=== PATIENT | male | born 1980 ===

== ENCOUNTER 2019-04-26 17:35 | Inpatient (IN) | payer OTHER ==
--- NOTE | 2019-04-26 17:53 | Event Note ---
ED Screening Note ED Screening Note: pt states he has gallstones states that he appears yellow This initial assessment/diagnostic orders/clinical plan/treatment(s) is/are subject to change based on patients health status, clinical progression and re- assessment by fellow clinical providers in the ED. Further treatment and workup at subsequent clinical providers discretion. Patient/guardian urged not to elope from the ED as their condition may be serious if not clinically assessed and managed. Initial orders include: labs
[2019-04-26 18:12] LABS: Basophils # (Auto) 0.1 K/mm3 (0.0-0.1); Basophils % (Auto) 0.6 % (0.0-1.8); Eosinophils # (Auto) 0.1 K/mm3 (0.0-0.4); Eosinophils % (Auto) 1.5 % (0.0-4.3); Hematocrit 47.4 % (35.5-45.6); Hemoglobin 16.6 gm/dl (11.8-15.2); Lymphocytes # (Auto) 1.4 K/mm3 (1.2-5.4); Lymphocytes % (Auto) 17.3 % (13.4-35.0); Mean Corpuscular HGB Conc 35 % (32-34); Mean Corpuscular Volume 86 fl (84-94); Monocytes # (Auto) 0.6 K/mm3 (0.0-0.8); Monocytes % (Auto) 7.2 % (0.0-7.3); Platelet Count 283 K/mm3 (140-440); Red Blood Count 5.54 M/mm3 (3.65-5.03); Red Cell Distribution Width 14.6 % (13.2-15.2)
[2019-04-26 18:37] LABS: Alanine Aminotransferase 253 units/L (7-56); Albumin 4.3 g/dL (3.9-5); BUN/Creatinine Ratio 15; Blood Urea Nitrogen 15 mg/dL (9-20); Calcium 9.6 mg/dL (8.4-10.2); Hemolysis Index 20
--- NOTE | 2019-04-26 20:45 | Ultrasound Report ---
ULTRASOUND ABDOMEN, LIMITED (RIGHT UPPER QUADRANT) INDICATION: Hx of gallstones, elevated bilirubin. COMPARISON: None available. FINDINGS: Pancreas: Visualized portion shows no significant abnormality. Liver: Normal. Gallbladder: Multiple echogenic structures are present within the gallbladder with associated acousti c shadowing.. Bile ducts: Normal. Common Bile Duct measures 4.1 mm. Free fluid: None. Additional Findings: None. IMPRESSION: 1. Cholelithiasis Signer Name: Presley May MD Signed: 04/26/2019 8:41 PM Workstation Name: [id number]
[2019-04-26] MEDS ORDERED: MORPHINE IV ONE (21:09)
[2019-04-26] MEDS ORDERED: NACL 0.9% 1000 ML 1,000 ML IV ONE (21:09)
[2019-04-26] MEDS ORDERED: ZOFRAN IV ONE (21:09)
--- NOTE | 2019-04-26 21:50 | Emergency Department Report ---
ED Abdominal Pain HPI - General Chief Complaint: Abdominal Pain Stated Complaint: (R) SIDE/ABD PAIN Time Seen by Provider: 04/26/19 17:51 Source: patient Mode of arrival: Ambulatory Limitations: Language Barrier - History of Present Illness Initial Comments: Patient is a 38-year-old male who presents for right upper quadrant pain sent from PCP office for jaundice history of gallstones pain is 8/10 exacerbated by by mouth intake as well as nausea and vomiting this afternoon last by mouth intake was this morning there is no fever no chills at this time patient denies EtOH denies substance abuse MD Complaint: abdominal pain Onset/Timin -: week(s) Location: RUQ Radiation: epigastric Migration to: RUQ Severity: moderate Severity scale (0 -10): 6 Quality: aching, sharp Consistency: constant Improves With: nothing Worsens With: eating Associated Symptoms: nausea, vomiting - Related Data Allergies Allergy/AdvReac Type Severity Reaction Status Date / Time No Known Allergies Allergy Unverified 04/26/19 17:37 ED Review of Systems ROS: Stated complaint: (R) SIDE/ABD PAIN Other details as noted in HPI Constitutional: no symptoms reported Eyes: denies: eye pain, eye discharge, vision change ENT: denies: ear pain, throat pain Respiratory: denies: cough, shortness of breath, wheezing Cardiovascular: denies: chest pain, palpitations Endocrine: no symptoms reported Gastrointestinal: abdominal pain, nausea, vomiting. denies: diarrhea, constipation, hematemesis, melena, hematochezia Genitourinary: denies: urgency, dysuria Musculoskeletal: denies: back pain, joint swelling, arthralgia Skin: denies: rash, lesions Neurological: denies: headache, weakness, paresthesias Psychiatric: denies: anxiety, depression Hematological/Lymphatic: as per HPI ED Past Medical Hx - Past Medical History Additional medical history: UNSURE OF HX - Social History Smoking Status: Never Smoker Substance Use Type: None ED Physical Exam - General Limitations: Language Barrier General appearance: alert, in no apparent distress - Head Head exam: Present: atraumatic, normocephalic - Eye Eye exam: Present: normal appearance, PERRL, EOMI Pupils: Present: normal accommodation - ENT ENT exam: Present: mucous membranes moist - Neck Neck exam: Present: normal inspection, full ROM. Absent: tenderness, lymphadenopathy - Respiratory Respiratory exam: Present: normal lung sounds bilaterally. Absent: respiratory distress, wheezes, stridor, chest wall tenderness - Cardiovascular Cardiovascular Exam: Present: regular rate, normal rhythm, normal heart sounds. Absent: systolic murmur, diastolic murmur, rubs, gallop - GI/Abdominal GI/Abdominal exam: Present: soft, tenderness, guarding, rebound, normal bowel sounds, organomegaly. Absent: distended, rigid, mass, bruit, pulsatile mass, hernia - Expanded GI/Abdominal Exam Expanded GI/Abdominal exam: Present: Kearney's sign. Absent: psoas sign, obturator sign, heel tap sign, Rovsing's sign, tenderness at Mcburney's Point, ascites - Rectal Rectal exam: Present: deferred - Extremities Exam Extremities exam: Present: normal inspection, full ROM, normal capillary refill. Absent: tenderness, pedal edema, joint swelling, calf tenderness - Back Exam Back exam: Present: normal inspection, full ROM. Absent: tenderness, CVA tenderness (R), CVA tenderness (L), muscle spasm, paraspinal tenderness, rash noted - Neurological Exam Neurological exam: Present: alert, oriented X3, CN II-XII intact, normal gait, reflexes normal. Absent: motor sensory deficit - Psychiatric Psychiatric exam: Present: normal affect, normal mood - Skin Skin exam: Present: warm, dry, intact, normal color. Absent: rash ED Course Vital Signs 04/26/19 17:51 Temperature 98.5 F Pulse Rate 105 H Respiratory 16 Rate Blood Pressure 156/100 [Left] O2 Sat by Pulse 97 Oximetry ED Medical Decision Making - Lab Data Result diagrams: 04/26/19 17:59 04/26/19 17:59 Lab Results 04/26/19 04/26/19 Range/Units 17:59 17:59 WBC 8.1 (4.5-11.0) K/mm3 RBC 5.54 H (3.65-5.03) M/mm3 Hgb 16.6 H (11.8-15.2) gm/dl Hct 47.4 H (35.5-45.6) % MCV 86 (84-94) fl MCH 30 (28-32) pg MCHC 35 H (32-34) % RDW 14.6 (13.2-15.2) % Plt Count 283 (140-440) K/mm3 Lymph % (Auto) 17.3 (13.4-35.0) % [place] % (Auto) 7.2 (0.0-7.3) % Eos % (Auto) 1.5 (0.0-4.3) % Baso % (Auto) 0.6 (0.0-1.8) % Lymph # 1.4 (1.2-5.4) K/mm3 [place] # 0.6 (0.0-0.8) K/mm3 Eos # 0.1 (0.0-0.4) K/mm3 Baso # 0.1 (0.0-0.1) K/mm3 Seg Neutrophils % 73.4 H (40.0-70.0) % Seg Neutrophils # 5.9 (1.8-7.7) K/mm3 Sodium 134 L (137-145) mmol/L Potassium 3.7 (3.6-5.0) mmol/L Chloride 93.2 L (98-107) mmol/L Carbon Dioxide 25 (22-30) mmol/L Anion Gap 20 mmol/L BUN 15 (9-20) mg/dL Creatinine 1.0 (0.8-1.5) mg/dL Estimated GFR > 60 ml/min BUN/Creatinine Ratio 15 % Glucose 153 H (75-100) mg/dL Calcium 9.6 (8.4-10.2) mg/dL Total Bilirubin 10.60 H (0.1-1.2) mg/dL AST 79 H (5-40) units/L ALT 253 H (7-56) units/L Alkaline Phosphatase 250 H (35-129) units/L Total Protein 8.2 (6.3-8.2) g/dL Albumin 4.3 (3.9-5) g/dL Albumin/Globulin Ratio 1.1 % Lipase 122 H (13-60) units/L - Radiology Data Radiology results: report reviewed, image reviewed Ordering Physician: SUKI DYER Date of Service: 04/26/19 Procedure(s): US abdomen limited Accession Number(s): [id number] cc: SUKI DYER ULTRASOUND ABDOMEN, LIMITED (RIGHT UPPER QUADRANT) INDICATION: Hx of gallstones, elevated bilirubin. COMPARISON: None available. FINDINGS: Pancreas: Visualized portion shows no significant abnormality. Liver: Normal. Gallbladder: Multiple echogenic structures are present within the gallbladder with associated acoustic shadowing.. Bile ducts: Normal. Common Bile Duct measures 4.1 mm. Free fluid: None. Additional Findings: None. IMPRESSION: 1. Cholelithiasis Signer Name: Presley May MD Signed: 04/26/2019 8:41 PM Workstation Name: [id number] Transcribed By: WG Dictated By: Presley May MD Electronically Authenticated By: Presley May MD Signed Date/Time: 04/26/192040 DD/ 38 TD/TT: - Medical Decision Making US: Gall stones, CT Abd Pelvis: Dilated Common Bile Duct, Cystic Mass at Pancrease Head, consulted ed attending recommendation Consult GI, Consult General Surgery, Admit to Hospitalist 1210: Consulted [facility]one DrJoce Bridges recommendation admit, to hospitalist, will see in am. 1220: Consulted General Surgery Dr. Alcaraz recommendation admit to medicine, NPO , ERCP in am, will see in am, consult GI, Admit to hospitalist [id number]: Pt for admission to Hospitalist at this time, pt handoff complete, discussed treatment plan with patient, pt verbalized agreement and understanding of same. Critical care attestation.: If time is entered above; I have spent that time in minutes in the direct care of this critically ill patient, excluding procedure time. ED Disposition Clinical Impression: Choledocholithiasis Disposition: OP ADMIT IP TO THIS HOSP Is pt being admited?: Yes Does the pt Need Aspirin: No Condition: Stable Time of Disposition: 00:35
[2019-04-26 22:30] LABS: Hepatitis B Surface Antigen Non-Reactive (Negative); Hepatitis C Virus Antibody Non-Reactive (NonReactive)
--- NOTE | 2019-04-26 23:39 | Cat Scan Report ---
CT abdomen pelvis w con INDICATION / CLINICAL INFORMATION: Abdominal pain. TECHNIQUE: The patient received 100 cc Omnipaque [address] scans at this location are performed using CT dose reduction for ALARA by means of automated exposure control. COMPARISON: None available. FINDINGS: ABDOMEN: The gallbladder is distended and contains multiple small calcified gallstones. No significan t wall thickening is seen. There is marked dilatation of the intra and extrahepatic bile ducts to the level of the ampulla. There is a 1.8 cm mildly complex cystic mass in the pancreatic head. The pancr eatic duct is slightly dilated. No focal liver lesion is seen. There is minimal focal capsular calcification in the splenic hilum. Th e adrenal glands, kidneys and bowel are normal. No enlarged lymph nodes are seen. The lung bases are clear. PELVIS: The distal ureters, urinary bladder and prostate gland are normal. The appendix is not seen a nd there is no evidence of diverticulitis. I do not identify a hernia. No abnormal mass or fluid kevin ection is identified. No acute osseous abnormality is seen. IMPRESSION: 1. Marked dilatation of the intra and extrahepatic bile ducts. There are 2 possible causes of obstruc tion. There is a 1.8 cm complex cystic mass in the pancreatic head. Differential diagnosis includes i ntraductal papillary mucinous tumor and other cystic pancreatic neoplasms. The other possible cause i s choledocholithiasis, although I do not identify a calcified gallstone in the common bile duct. 2. Dilated gallbladder with cholelithiasis. 3. Mildly dilated pancreatic duct is likely related to the cystic lesion in the pancreatic head. Signer Name: Herberth Saavedra MD Signed: 04/26/2019 11:35 PM Workstation Name: [id number]
[2019-04-27] MEDS ORDERED: ZOFRAN IV PRN (01:24)
[2019-04-27] MEDS ORDERED: TYLENOL PO PRN (01:24)
[2019-04-27] MEDS ORDERED: SODIUM CHLORIDE FLUSH SYRINGE 10 ML IV PRN (01:24)
[2019-04-27] MEDS ORDERED: MORPHINE IV PRN (01:24)
[2019-04-27] MEDS ORDERED: BENADRYL IV PRN (01:26)
--- NOTE | 2019-04-27 01:27 | History and Physical Report ---
History of Present Illness Date of examination: 04/27/19 History of present illness: 38-year-old male with no medical problems come to the emergency room with complaints of abdominal pain located in epigastric, left upper quadrant that started 2 weeks ago. He describes it as a dull pain, intermittent, associated with nausea although he said 2 episodes of vomiting, intensity 7/10, radiating to the right side of the back. Admits to 8 pound weight loss over the last 1 week Review Of Systems: Constitutional: no weight loss, fever, chills Ears, eyes, nose, mouth and throat: no nasal congestion, no nasal discharge, no sinus pressure, blurry vision, diplopia Neck: No neck pain or rigidity. Cardiovascular: No palpitations, chest pain Respiratory: No shortness of breath, cough Gastrointestinal: No hematochezia Genitourinary : no dysuria, frequency , hematuria Musculoskeletal: no muscle ache , joint pain Integumentary: no rash, no pruritis Neurological: no parathesias, focal weakness Endocrine: no cold or heat intolerance, no polyuria or polydipsia Hematologic/Lymphatic: no easy bruising, no easy bleeding, no gland swelling Allergic/Immunologic: no urticaria, no angioedema. PAST MEDICAL HISTORY:None PAST SURGICAL HISTORY:None FAMILY HISTORY:hypertension, diabetes SOCIAL HISTORY: Denies tobacco, drugs, social alcohol Medications and Allergies Allergies Allergy/AdvReac Type Severity Reaction Status Date / Time No Known Allergies Allergy Unverified 04/26/19 17:37 Active Meds: Active Medications Acetaminophen (Tylenol) 650 mg PO Q4H PRN PRN Reason: Pain MILD(1-3)/Fever >100.5/KIRAN Diphenhydramine HCl (Benadryl) 25 mg IV Q6H PRN PRN Reason: Itching Enoxaparin Sodium (Lovenox) 30 mg SUB-Q QDAY ALDAIR Sodium Chloride (Nacl 0.45% 1000 Ml) 1,000 mls @ 100 mls/hr IV DIRECT ALDAIR Morphine Sulfate (Morphine) 2 mg IV Q4H PRN PRN Reason: Pain, Moderate (4-6) Ondansetron HCl (Zofran) 4 mg IV Q4H PRN PRN Reason: Nausea And Vomiting Sodium Chloride (Sodium Chloride Flush Syringe 10 Ml) 10 ml IV BID ALDAIR Sodium Chloride (Sodium Chloride Flush Syringe 10 Ml) 10 ml IV PRN PRN PRN Reason: LINE FLUSH Exam - Physical Exam Narrative exam: General Apperance: The patient sitting in bed no acute distress HEENT: Normocephalic, atraumatic. Pupils equally round and reactive to light, extraocular movement intact, and no sclericterus or JVD or thyromegaly or nodule. Neck supple, no carotid bruit, mucous membranes moist, no exudate or erythema Heart: S1-S2, regular is rhythm Lungs: Clear to auscultation bilaterally, breathing comfortable Abdomen: Positive bowel sounds, soft, tender in the epigastric, left upper quadrant, nondistended, no organomegaly Extremities: No edema cyanosis clubbing Skin: no rash, nodule, warm and dry Neuro:CN 2 -12 intact, motor/sensory intact, speech is fluent - Constitutional Vitals: Temp Pulse Resp BP Pulse Ox 98.5 F 105 H 16 156/100 97 04/26/19 17:51 04/26/19 17:51 04/26/19 17:51 04/26/19 17:51 04/26/19 17:51 Results - Labs CBC & Chem 7: 04/26/19 17:59 04/26/19 17:59 Labs: Abnormal lab results 04/26/19 04/26/19 Range/Units 17:59 17:59 RBC 5.54 H (3.65-5.03) M/mm3 Hgb 16.6 H (11.8-15.2) gm/dl Hct 47.4 H (35.5-45.6) % MCHC 35 H (32-34) % Seg Neutrophils % 73.4 H (40.0-70.0) % Sodium 134 L (137-145) mmol/L Chloride 93.2 L (98-107) mmol/L Glucose 153 H (75-100) mg/dL Total Bilirubin 10.60 H (0.1-1.2) mg/dL AST 79 H (5-40) units/L ALT 253 H (7-56) units/L Alkaline Phosphatase 250 H (35-129) units/L Lipase 122 H (13-60) units/L - Imaging and Cardiology CT scan - abdomen: report reviewed CT scan - pelvis: report reviewed US - abdomen: report reviewed Assessment and Plan Assessment Abdominal pain secondary to choledocholithiasis versus pancreatic mass Elevated blood pressure Plan Bowel rest, start IV fluid, IV pain medication GI and surgery was consulted to see the patient Monitor blood pressure, start IV hydralazine as needed DVT prophylaxis
[2019-04-27] MEDS: NACL 0.45% 1000 ML 1,000 ML IV SCH ×2 (03:20→19:36)
[2019-04-27] MEDS ORDERED: NACL 0.45% 1000 ML 1,000 ML IV ONE (03:21)
[2019-04-27] MEDS ORDERED: APRESOLINE IV PRN (04:30)
[2019-04-27] MEDS: LOVENOX SUB-Q SCH (10:00)
[2019-04-27] MEDS: SODIUM CHLORIDE FLUSH SYRINGE 10 ML IV SCH ×2 (10:24→22:14)
--- NOTE | 2019-04-27 11:43 | Gastroenterology Consultation ---
<JOVANY ZULETA - Last Filed: 04/27/19 11:58> History of Present Illness - Reason for Consult Consult date: 04/27/19 gallstones Requesting physician: MIKEY NOLASCO - History of Present Illness Patient is a 38 y/o male who presented to ED from PCP office for evaluation of abd pain with jaundice and hx of gallstones to which GI has been consulted. Surgery consult pending. This morning patient was resting in bed w/o acute distress and family at bedside. Reports intermittent epigastric pain that radiates to his back in the past, however pain progressively became worse over the last couple of weeks. Admits to associated occasional N/V with symptoms exacerbated with PO intake. Has lost a few lbs over the last couple of weeks due to current symptoms but has not had a significant loss. Denies fever, CP, SOB, signs of bleeding, or LGI symptoms such as diarrhea or constipation. Has no hx or Fhx of liver/pancreatic disease or GI cancer. No alcohol or substance abuse. Prior abdominal surgery with appendectomy. Past History Past Medical History: No medical history Past Surgical History: appendectomy Social history: denies: smoking, alcohol abuse Family history: diabetes, hypertension Medications and Allergies Allergies Allergy/AdvReac Type Severity Reaction Status Date / Time No Known Allergies Allergy Unverified 04/26/19 17:37 Home Medications Medication Instructions Recorded Confirmed Last Taken Type No Known Home Medications [No 04/27/19 04/27/19 Unknown History Reported Home Medications] Active Meds: Active Medications Acetaminophen (Tylenol) 650 mg PO Q4H PRN PRN Reason: Pain MILD(1-3)/Fever >100.5/KIRAN Diphenhydramine HCl (Benadryl) 25 mg IV Q6H PRN PRN Reason: Itching Last Admin: 04/27/19 05:01 Dose: 25 mg Documented by: Enoxaparin Sodium (Lovenox) 40 mg SUB-Q QDAY ALDAIR Hydralazine HCl (Apresoline) 5 mg IV Q6H PRN PRN Reason: Hypertension Sodium Chloride (Nacl 0.45% 1000 Ml) 1,000 mls @ 100 mls/hr IV DIRECT ALDAIR Last Admin: 04/27/19 03:20 Dose: 100 mls/hr Documented by: Morphine Sulfate (Morphine) 2 mg IV Q4H PRN PRN Reason: Pain, Moderate (4-6) Ondansetron HCl (Zofran) 4 mg IV Q4H PRN PRN Reason: Nausea And Vomiting Sodium Chloride (Sodium Chloride Flush Syringe 10 Ml) 10 ml IV BID ALDAIR Last Admin: 04/27/19 10:24 Dose: 10 ml Documented by: Sodium Chloride (Sodium Chloride Flush Syringe 10 Ml) 10 ml IV PRN PRN PRN Reason: LINE FLUSH medications reviewed/updated as tolerated Review of Systems - Review of Systems All systems: negative Gastrointestinal: abdominal pain, nausea, vomiting, jaundice Exam - Constitutional Vital Signs: Temp Pulse Resp BP Pulse Ox 97.1 F L 74 20 141/86 95 04/27/19 05:02 04/27/19 09:09 04/27/19 09:09 04/27/19 05:02 04/27/19 09:09 General appearance: no acute distress - EENT Eyes: PERRL, EOM intact, scleral icterus - Respiratory Respiratory effort: normal Respiratory: bilateral: CTA - Cardiovascular Rhythm: regular - Gastrointestinal General gastrointestinal: Present: soft, non-tender, non-distended, normal bowel sounds - Neurologic Neurological: alert and oriented x3 - Labs CBC & Chem 7: 04/26/19 17:59 04/26/19 17:59 Lab Results: Laboratory Results - last 24 hr 04/26/19 04/26/19 04/26/19 17:59 17:59 21:53 WBC 8.1 RBC 5.54 H Hgb 16.6 H Hct 47.4 H MCV 86 MCH 30 MCHC 35 H RDW 14.6 Plt Count 283 Lymph % (Auto) 17.3 [place] % (Auto) 7.2 Eos % (Auto) 1.5 Baso % (Auto) 0.6 Lymph # 1.4 [place] # 0.6 Eos # 0.1 Baso # 0.1 Seg Neutrophils % 73.4 H Seg Neutrophils # 5.9 Sodium 134 L Potassium 3.7 Chloride 93.2 L Carbon Dioxide 25 Anion Gap 20 BUN 15 Creatinine 1.0 Estimated GFR > 60 BUN/Creatinine Ratio 15 Glucose 153 H Calcium 9.6 Total Bilirubin 10.60 H AST 79 H ALT 253 H Alkaline Phosphatase 250 H Total Protein 8.2 Albumin 4.3 Albumin/Globulin Ratio 1.1 Lipase 122 H Hepatitis A IgM Ab Non-reactive Hep Bs Antigen Non-reactive Hep B Core IgM Ab Non-reactive Hepatitis C Antibody Non-reactive Assessment and Plan 1.elevated LFTs 2.jaundice 3.abdominal pain 4.gallstones -afebrile -WBC WNL -H/H 16.6/47.4-no signs of bleeding -LFTs- T.ragini 10.60, AST 79, ALT 253, alk phos 250 -lipase 122 -acute hepatitis panel negative -abd U/S showed cholelithiasis (liver normal) -abd CT showed dilatation of intra and extrahepatic bile ducts, 1.8cm complex cystic mass in pancreatic head, dilated gallbladder with cholelithiasis, and mildly dilated pancreatic duct -surgery consult pending -etiology- most likely 2/2 obstruction (pancreatic neoplasm vs choledocho lithiasis?) -will order tumor markers and MR/MRCP for further evaluation -continue to trend labs and supportive care -further recommendations to follow pending MRCP results <CALISTA DIEHL - Last Filed: 04/27/19 15:56> Medications and Allergies Active Meds: Active Medications Acetaminophen (Tylenol) 650 mg PO Q4H PRN PRN Reason: Pain MILD(1-3)/Fever >100.5/KIRAN Diphenhydramine HCl (Benadryl) 25 mg IV Q6H PRN PRN Reason: Itching Last Admin: 04/27/19 05:01 Dose: 25 mg Documented by: Enoxaparin Sodium (Lovenox) 40 mg SUB-Q QDAY [facility] Hydralazine HCl (Apresoline) 5 mg IV Q6H PRN PRN Reason: Hypertension Sodium Chloride (Nacl 0.45% 1000 Ml) 1,000 mls @ 100 mls/hr IV DIRECT [facility] Last Admin: 04/27/19 03:20 Dose: 100 mls/hr Documented by: Morphine Sulfate (Morphine) 2 mg IV Q4H PRN PRN Reason: Pain, Moderate (4-6) Ondansetron HCl (Zofran) 4 mg IV Q4H PRN PRN Reason: Nausea And Vomiting Sodium Chloride (Sodium Chloride Flush Syringe 10 Ml) 10 ml IV BID [facility] Last Admin: 04/27/19 10:24 Dose: 10 ml Documented by: Sodium Chloride (Sodium Chloride Flush Syringe 10 Ml) 10 ml IV PRN PRN PRN Reason: LINE FLUSH Exam - Constitutional Vital Signs: Temp Pulse Resp BP Pulse Ox 98.6 F 89 18 150/92 97 04/27/19 12:06 04/27/19 12:06 04/27/19 12:06 04/27/19 12:06 04/27/19 12:06 - Labs CBC & Chem 7: 04/26/19 17:59 04/26/19 17:59 Lab Results: Laboratory Results - last 24 hr 04/26/19 04/26/19 04/26/19 17:59 17:59 21:53 WBC 8.1 RBC 5.54 H Hgb 16.6 H Hct 47.4 H MCV 86 MCH 30 MCHC 35 H RDW 14.6 Plt Count 283 Lymph % (Auto) 17.3 [place] % (Auto) 7.2 Eos % (Auto) 1.5 Baso % (Auto) 0.6 Lymph # 1.4 [place] # 0.6 Eos # 0.1 Baso # 0.1 Seg Neutrophils % 73.4 H Seg Neutrophils # 5.9 Sodium 134 L Potassium 3.7 Chloride 93.2 L Carbon Dioxide 25 Anion Gap 20 BUN 15 Creatinine 1.0 Estimated GFR > 60 BUN/Creatinine Ratio 15 Glucose 153 H Calcium 9.6 Total Bilirubin 10.60 H AST 79 H ALT 253 H Alkaline Phosphatase 250 H Total Protein 8.2 Albumin 4.3 Albumin/Globulin Ratio 1.1 Lipase 122 H Hepatitis A IgM Ab Non-reactive Hep Bs Antigen Non-reactive Hep B Core IgM Ab Non-reactive Hepatitis C Antibody Non-reactive Assessment and Plan Patient seen and examined. Agree with note above. 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 He will need referral to tertiary center with pancreaticobiliary surgeon as he will ultimately need surgery. Patient does not have insurance so given potential delays, will likely need ERCP with stent placement to relieve obstruction in the mean time. will follow-up tomorrow regarding timing for procedure. okay for diet today from gi stand point.
--- NOTE | 2019-04-27 12:27 | Event Note ---
Date: 04/27/19 patient seen and examined 38-year-old male with no medical problems come to the emergency room with complaints of abdominal pain located in epigastric, left upper quadrant that started 2 weeks ago. GI following, MRCP today - will follow recommendation.
--- NOTE | 2019-04-27 12:32 | Magnetic Resonance Report ---
MRI ABDOMEN WITHOUT CONTRAST INDICATION / CLINICAL INFORMATION: dilated cbd, mass pancreatic head. TECHNIQUE: Multiplanar, multisequence series were obtained through the abdomen. Dynamic postcontrast imaging fol lowing 18 mL of MultiHance intravenously. Thin and thick slab MRCP images. Rotational MIPS. COMPARISON: CT abdomen pelvis with contrast and ultrasound right upper quadrant dated 04/26/2019 FINDINGS: LIVER: No significant abnormality. GALLBLADDER: There are multiple small gallstones measuring up to 5 mm in the fundus of the gallbladde r. BILE DUCTS: There is marked diffuse intrahepatic and extrahepatic biliary dilatation. The common bile duct is dilated up to 1.7 cm. There is an abrupt transition of caliber in the distal common bile nubia t approximately 2 cm from the ampulla suggesting a high-grade stricture. No choledocholithiasis is de tected on MR or MRCP imaging. PANCREAS: MRI also demonstrates a 2.8 x 1.8 x 1.3 cm complex cystic mass in the pancreatic head. This lesion is predominantly cystic but contains multiple thin internal septations. No large soft tissue component is appreciated. The remaining pancreatic parenchyma is unremarkable. The pancreatic duct is borderline dilated measuring 3.7 mm in diameter. No inflammatory changes are appreciated. SPLEEN: No significant abnormality. ADRENALS: No significant abnormality. RIGHT KIDNEY AND URETER: No significant abnormality. LEFT KIDNEY AND URETER: No significant abnormality. STOMACH AND VISUALIZED BOWEL: No significant abnormality. PERITONEUM: No free fluid. No free air. No fluid collection. LYMPH NODES: No significant adenopathy. AORTA and ARTERIES: No significant abnormality. IVC and VEINS: No significant abnormality. ADDITIONAL FINDINGS: None. SKELETAL SYSTEM: No significant abnormality. IMPRESSION: Marked diffuse intrahepatic and extrahepatic biliary dilatation as outlined above. This appears to be secondary to a high-grade stricture in the distal common bile duct. No convincing choledocholithiasi s is identified. Complex cystic mass in the head of the pancreas is also identified. Overall, I favor favor a benign l esion. Considerations include a pseudocyst, cystadenoma or other cystic pancreatic neoplasm. Cholelithiasis. Signer Name: Aguilar Hines Jr, MD Signed: 04/27/2019 12:28 PM Workstation Name: [id number]
--- NOTE | 2019-04-27 13:38 | Progress Note ---
Assessment and Plan Full consult dictated: 38 y/o healthy male. Jaundiced. neg pain. MRCP - + gallstones, confirms dilated CBD. CBD obst secondary to choledocolithiasis, stricture? pancreatic mass or cystic lesion in head of pancreas? GI note noted awaiting ERCP will follow with you History of Present Illness Date of examination: 04/27/19 History of present illness: 38-year-old male with no medical problems come to the emergency room with complaints of abdominal pain located in epigastric, left upper quadrant that started 2 weeks ago. He describes it as a dull pain, intermittent, associated with nausea although he said 2 episodes of vomiting, intensity 7/10, radiating t o the right side of the back. Admits to 8 pound weight loss over the last 1 week Review Of Systems: Constitutional: no weight loss, fever, chills Ears, eyes, nose, mouth and throat: no nasal congestion, no nasal discharge, no sinus pressure, blurry vision, diplopia Neck: No neck pain or rigidity. Cardiovascular: No palpitations, chest pain Respiratory: No shortness of breath, cough Gastrointestinal: No hematochezia Genitourinary : no dysuria, frequency , hematuria Musculoskeletal: no muscle ache , joint pain Integumentary: no rash, no pruritis Neurological: no parathesias, focal weakness Endocrine: no cold or heat intolerance, no polyuria or polydipsia Hematologic/Lymphatic: no easy bruising, no easy bleeding, no gland swelling Allergic/Immunologic: no urticaria, no angioedema. PAST MEDICAL HISTORY:None PAST SURGICAL HISTORY:None FAMILY HISTORY:hypertension, diabetes SOCIAL HISTORY: Denies tobacco, drugs, social alcohol Selected Entries 04/27/19 12:06 Temperature 98.6 F Pulse Rate 89 Respiratory 18 Rate Blood Pressure 150/92 Laboratory Tests 04/26/19 04/26/19 17:59 17:59 WBC 8.1 Hgb 16.6 H Hct 47.4 H Total Bilirubin 10.60 H AST 79 H ALT 253 H Alkaline Phosphatase 250 H Lipase 122 H Objective Vital Signs - 12hr 04/27/19 04/27/19 04/27/19 03:20 05:00 05:02 Temperature 98.3 F 97.1 F L Pulse Rate 90 74 Pulse Rate [ Right Radial] Respiratory 16 18 20 Rate Blood Pressure 141/86 Blood Pressure 148/100 [Left] O2 Sat by Pulse 98 94 95 Oximetry 04/27/19 04/27/19 09:09 12:06 Temperature 98.6 F Pulse Rate 89 Pulse Rate [ 74 Right Radial] Respiratory 20 18 Rate Blood Pressure 150/92 Blood Pressure [Left] O2 Sat by Pulse 95 97 Oximetry - Labs 04/26/19 17:59 04/26/19 17:59 Diabetes panel 04/26/19 Range/Units 17:59 Sodium 134 L (137-145) mmol/L Potassium 3.7 (3.6-5.0) mmol/L Chloride 93.2 L (98-107) mmol/L Carbon Dioxide 25 (22-30) mmol/L BUN 15 (9-20) mg/dL Creatinine 1.0 (0.8-1.5) mg/dL Glucose 153 H (75-100) mg/dL Calcium 9.6 (8.4-10.2) mg/dL AST 79 H (5-40) units/L ALT 253 H (7-56) units/L Alkaline Phosphatase 250 H (35-129) units/L Total Protein 8.2 (6.3-8.2) g/dL Albumin 4.3 (3.9-5) g/dL Calcium panel 04/26/19 Range/Units 17:59 Calcium 9.6 (8.4-10.2) mg/dL Albumin 4.3 (3.9-5) g/dL Pituitary panel 04/26/19 Range/Units 17:59 Sodium 134 L (137-145) mmol/L Potassium 3.7 (3.6-5.0) mmol/L Chloride 93.2 L (98-107) mmol/L Carbon Dioxide 25 (22-30) mmol/L BUN 15 (9-20) mg/dL Creatinine 1.0 (0.8-1.5) mg/dL Glucose 153 H (75-100) mg/dL Calcium 9.6 (8.4-10.2) mg/dL Adrenal panel 04/26/19 Range/Units 17:59 Sodium 134 L (137-145) mmol/L Potassium 3.7 (3.6-5.0) mmol/L Chloride 93.2 L (98-107) mmol/L Carbon Dioxide 25 (22-30) mmol/L BUN 15 (9-20) mg/dL Creatinine 1.0 (0.8-1.5) mg/dL Glucose 153 H (75-100) mg/dL Calcium 9.6 (8.4-10.2) mg/dL Total Bilirubin 10.60 H (0.1-1.2) mg/dL AST 79 H (5-40) units/L ALT 253 H (7-56) units/L Alkaline Phosphatase 250 H (35-129) units/L Total Protein 8.2 (6.3-8.2) g/dL Albumin 4.3 (3.9-5) g/dL
--- NOTE | 2019-04-27 23:45 | Consultation ---
REASON FOR CONSULTATION: Jaundice. HISTORY OF PRESENT ILLNESS: The patient is a healthy 38-year-old male who has a known history of gallstones. The patient states that he began experiencing some epigastric pain and noticed that he was " Went to see outpatient clinic where they worked him up for hepatitis A as well as did a gallbladder ultrasound. I noted an elevated bilirubin and does his arrival to the Emergency Room. PAST MEDICAL HISTORY: Negative. PAST SURGICAL HISTORY: Status post appendectomy with subsequent reexploration from the recovery room back to the OR. No other surgeries. ALLERGIES: No known allergies. MEDICATIONS: No medications. FAMILY HISTORY: Hypertension and diabetes. SOCIAL HISTORY: Denies any smoking or drinking. REVIEW OF SYSTEMS: Noncontributory. PHYSICAL EXAMINATION: GENERAL: At this time revealed the patient to be awake, alert, cooperative and comfortable. No acute distress. VITAL SIGNS: Shown to be afebrile with a temperature of 98.6, blood pressure is 150/92, pulse of 89, respirations of 18. LABORATORY DATA: Lab work at present includes a CBC, which shows a white count of 8.1, H and H of 16.6 and 47.4. Electrolytes are all within normal limits. Glucose is 153. Total bilirubin is very elevated at 10.6, AST is slightly elevated at 79, ALT elevated to 53 and alkaline phosphatase elevated to 50. Lipase is slightly elevated at 122. Hepatitis serology was negative. Examination of the abdomen reveals to be soft and nontender at present. Sclerae are icteric. CT scan of the abdomen as well as a gallbladder ultrasound and MRCP have been done, which I have reviewed with the radiologist. Gallstones are noted. Dilated gallbladder was seen. Dilated common bile duct is also seen, but no gallstones can clearly be seen within the common bile duct lumen. Mass is also present in the pancreatic head, which appears to be a cystic type mass with possibly some septae. Differential includes a pseudocyst versus a cystadenoma or cystadenocarcinoma. GI evaluation has also been noted. GI evaluation was done prior to MRCP findings; however, in lieu of these MRCP findings now, ERCP would be recommended. IMPRESSION: 1. At this time is a healthy 38-year-old gentleman with common bile duct obstruction secondary to possible choledocholithiasis (?). 2. Possible stricture (?). 3. Possible extrinsic compression from pancreatic mass. The patient is surgically stable at present. We will await GI followup to see when ERCP is to be contemplated. We will follow closely with you. Thank you very much for consultation. JOB# [id number] ARIANNE/ERNESTINE
[2019-04-28 05:14] LABS: Basophils # (Auto) 0.1 K/mm3 (0.0-0.1); Basophils % (Auto) 0.8 % (0.0-1.8); Eosinophils # (Auto) 0.3 K/mm3 (0.0-0.4); Eosinophils % (Auto) 3.6 % (0.0-4.3); Hematocrit 44.7 % (35.5-45.6); Hemoglobin 15.3 gm/dl (11.8-15.2); Lymphocytes # (Auto) 1.2 K/mm3 (1.2-5.4); Lymphocytes % (Auto) 14.5 % (13.4-35.0); Mean Corpuscular HGB Conc 34 % (32-34); Mean Corpuscular Volume 86 fl (84-94); Monocytes # (Auto) 0.6 K/mm3 (0.0-0.8); Monocytes % (Auto) 7.3 % (0.0-7.3); Platelet Count 230 K/mm3 (140-440); Red Cell Distribution Width 14.8 % (13.2-15.2)
[2019-04-28 05:20] LABS: INR 0.91 (0.87-1.13)
[2019-04-28 05:38] LABS: Alanine Aminotransferase 190 units/L (7-56); Albumin 4.1 g/dL (3.9-5); BUN/Creatinine Ratio 18; Blood Urea Nitrogen 11 mg/dL (9-20); Calcium 9.2 mg/dL (8.4-10.2); Hemolysis Index 3
--- NOTE | 2019-04-28 09:26 | Gastroenterology Progress Note ---
Assessment and Plan 1. Obstructive jaundice - likely from lesion at head of pancreas, possibly cystic neoplasm. No signs of cholangitis. Plan for ERCP with stent placement tomorrow to relieve obstruction. will likely ultimately need surgery as stated in consult note. NPO at midnight, hold lovenox tomorrow morning (discussed with pt's nurse). Monitor liver enzymes. Subjective Date of service: 04/28/19 Principal diagnosis: biliary obstruction Interval history: pt seen and examined; no new gi complaints. tolerating po. no fevers/chills Objective - Constitutional Vitals: Temp Pulse Resp BP Pulse Ox 97.6 F 86 24 135/90 97 04/28/19 04:48 04/28/19 04:48 04/28/19 04:48 04/28/19 04:48 04/28/19 04:48 General appearance: no acute distress - EENT Eyes: scleral icterus - Respiratory Respiratory effort: normal Respiratory: left: CTA - Cardiovascular Rhythm: regular Heart Sounds: Present: S1 & S2 - Gastrointestinal General gastrointestinal: Present: soft, non-tender, non-distended - Labs CBC & Chem 7: 04/28/19 04:34 04/28/19 04:34 Labs: Laboratory Results - last 24 hr 04/28/19 04/28/19 04/28/19 04:34 04:34 04:34 WBC 8.6 RBC 5.20 H Hgb 15.3 H Hct 44.7 MCV 86 MCH 30 MCHC 34 RDW 14.8 Plt Count 230 Lymph % (Auto) 14.5 Crook % (Auto) 7.3 Eos % (Auto) 3.6 Baso % (Auto) 0.8 Lymph # 1.2 Crook # 0.6 Eos # 0.3 Baso # 0.1 Seg Neutrophils % 73.8 H Seg Neutrophils # 6.3 PT 12.0 L INR 0.91 Sodium 137 Potassium 4.1 Chloride 98.4 Carbon Dioxide 28 Anion Gap 15 BUN 11 Creatinine 0.6 L Estimated GFR > 60 BUN/Creatinine Ratio 18 Glucose 122 H Calcium 9.2 Total Bilirubin 11.50 H AST 71 H ALT 190 H Alkaline Phosphatase 230 H Total Protein 7.4 Albumin 4.1 Albumin/Globulin Ratio 1.2 Lipase 101 H - Imaging CT scan: report reviewed MRI: report reviewed
[2019-04-28] MEDS ORDERED: XYLOCAINE MPF 2% ONE (10:30)
[2019-04-28] MEDS ORDERED: WATER FOR IRRIG STERILE IR ONE (10:35)
[2019-04-28] MEDS ORDERED: NACL 0.9% 1000 ML 1,000 ML ONE (10:35)
[2019-04-28] MEDS ORDERED: NACL 0.9% 100 ML ONE (10:36)
[2019-04-28] MEDS: LOVENOX SUB-Q SCH (10:57)
[2019-04-28] MEDS: NACL 0.45% 1000 ML 1,000 ML IV SCH ×2 (10:57→21:24)
[2019-04-28] MEDS: SODIUM CHLORIDE FLUSH SYRINGE 10 ML IV SCH ×2 (10:57→21:24)
--- NOTE | 2019-04-28 12:36 | Progress Note ---
Assessment and Plan Abdominal pain secondary to choledocholithiasis versus pancreatic mass Elevated LFT Elevated blood pressure/HTN DVT Px Plan cont IV fluid, IV pain medication GI and surgery was consulted to see the patient - plan for ERCP on Tuesday Monitor blood pressure, cont IV hydralazine as needed DVT prophylaxis Brief History: Patient is a 38 y/o male who presented to ED from PCP office for evaluation of abd pain with jaundice and hx of gallstones. Patient Reports intermittent epigastric pain that radiates to his back in the past, however pain progressively became worse over the last couple of weeks. Admits to associated occasional N/V with symptoms exacerbated with PO intake. Has lost a few lbs over the last couple of weeks due to current symptoms but has not had a significant loss. CT abdomen and pelvis with contrast obtained in the ER which showed marked dietitian of the intra-and extrahepatic bile duct weight 1.8 cm complex cystic mass in the pancreatic head, abdominal ultrasound consistent with cholel ithiasis. GI and general surgery has been consulted for further recommendation. MRI today showed marked diffuse intra-and extrahepatic biliary dilatation with complex cystic mass in the head of the pancreas. Radiological data: Abdominal ultrasound: Cholelithiasis CT abdomen and pelvis with contrast: 1. Marked dilatation of the intra and extrahepatic bile ducts. There are 2 possible causes of obstruction. There is a 1.8 cm complex cystic mass in the pancreatic head. Differential diagnosis includes intraductal papillary mucinous tumor and other cystic pancreatic neoplasms. The other possible cause is choledocholithiasis, although I do not identify a calcified gallstone in the common bile duct. 2. Dilated gallbladder with cholelithiasis. 3. Mildly dilated pancreatic duct is likely related to the cystic lesion in the pancreatic head. MRCP: Marked diffuse intrahepatic and extrahepatic biliary dilatation as outlined above. This appears to be secondary to a high-grade stricture in the distal common bile duct. No convincing choledocholithiasis is identified. Complex cystic mass in the head of the pancreas is also identified. Overall, I favor favor a benign lesion. Considerations include a pseudocyst, cystadenoma or other cystic pancreatic neoplasm. Cholelithiasis. Hospitalist Physical exam: GENERAL: well-developed and well-nourished lying on bed appeared to be in no discomfort. HEENT: Normocephalic. Atraumatic. No conjunctival congestion or icterus. Patient has moist mucous membranes. NECK: Supple. Trachea midline. CHEST/LUNGS: Clear to auscultated bilaterally, breathing nonlabored. No wheezes crackles or rhonchi. HEART/CARDIOVASCULAR: Regular in rate and rhythm. S1 and S2 positive. ABDOMEN: Abdomen is soft, nontender. Patient has normal bowel sounds. SKIN: There is no rash. Warm and dry. NEURO: No focal motor deficit. Follows command. MUSCULOSKELETAL: No joint effusion or tenderness. EXTRIMITY: No edema, no cyanosis or clubbing. PSYCH: Cooperative. Subjective Date of service: 04/28/19 Principal diagnosis: biliary obstruction Interval history: Patient seen and examined. Medical records and medication list reviewed. No acute event overnight noted by the RN. Patient denies any chest pain or difficulty breathing. Patient denies any abdominal pain Discussed plan of care at bedside with patient. Objective - Constitutional Vitals: Vital Signs - 12hr 04/28/19 04/28/19 04/28/19 04:48 09:53 11:31 Temperature 97.6 F 99.4 F Pulse Rate 86 83 Respiratory 24 22 Rate Blood Pressure 135/90 139/90 O2 Sat by Pulse 97 97 95 Oximetry - Labs CBC & Chem 7: 04/28/19 04:34 04/28/19 04:34 Labs: Abnormal lab results 04/28/19 04/28/19 04/28/19 Range/Units 04:34 04:34 04:34 RBC 5.20 H (3.65-5.03) M/mm3 Hgb 15.3 H (11.8-15.2) gm/dl Seg Neutrophils % 73.8 H (40.0-70.0) % PT 12.0 L (12.2-14.9) Sec. Creatinine 0.6 L (0.8-1.5) mg/dL Glucose 122 H (75-100) mg/dL Total Bilirubin 11.50 H (0.1-1.2) mg/dL AST 71 H (5-40) units/L ALT 190 H (7-56) units/L Alkaline Phosphatase 230 H (35-129) units/L Lipase 101 H (13-60) units/L
--- NOTE | 2019-04-28 13:16 | Progress Note ---
Assessment and Plan Pt resting comfortably in bed. denies any abd pain Abd soft. GI note noted. rising T Ronny CBD obst - pancreatic mass vs stone surgically stable for ERCP and stent placement in am. Selected Entries 04/28/19 11:31 Temperature 99.4 F Pulse Rate 83 Respiratory 22 Rate Blood Pressure 139/90 Laboratory Tests 04/26/19 04/28/19 04/28/19 17:59 04:34 04:34 WBC 8.6 Total Bilirubin 10.60 H 11.50 H Objective Vital Signs - 12hr 04/28/19 04/28/19 04/28/19 04:48 09:53 11:31 Temperature 97.6 F 99.4 F Pulse Rate 86 83 Respiratory 24 22 Rate Blood Pressure 135/90 139/90 O2 Sat by Pulse 97 97 95 Oximetry - Labs 04/28/19 04:34 04/28/19 04:34 Diabetes panel 04/28/19 Range/Units 04:34 Sodium 137 (137-145) mmol/L Potassium 4.1 (3.6-5.0) mmol/L Chloride 98.4 (98-107) mmol/L Carbon Dioxide 28 (22-30) mmol/L BUN 11 (9-20) mg/dL Creatinine 0.6 L (0.8-1.5) mg/dL Glucose 122 H (75-100) mg/dL Calcium 9.2 (8.4-10.2) mg/dL AST 71 H (5-40) units/L ALT 190 H (7-56) units/L Alkaline Phosphatase 230 H (35-129) units/L Total Protein 7.4 (6.3-8.2) g/dL Albumin 4.1 (3.9-5) g/dL Calcium panel 04/28/19 Range/Units 04:34 Calcium 9.2 (8.4-10.2) mg/dL Albumin 4.1 (3.9-5) g/dL Pituitary panel 04/28/19 Range/Units 04:34 Sodium 137 (137-145) mmol/L Potassium 4.1 (3.6-5.0) mmol/L Chloride 98.4 (98-107) mmol/L Carbon Dioxide 28 (22-30) mmol/L BUN 11 (9-20) mg/dL Creatinine 0.6 L (0.8-1.5) mg/dL Glucose 122 H (75-100) mg/dL Calcium 9.2 (8.4-10.2) mg/dL Adrenal panel 04/28/19 Range/Units 04:34 Sodium 137 (137-145) mmol/L Potassium 4.1 (3.6-5.0) mmol/L Chloride 98.4 (98-107) mmol/L Carbon Dioxide 28 (22-30) mmol/L BUN 11 (9-20) mg/dL Creatinine 0.6 L (0.8-1.5) mg/dL Glucose 122 H (75-100) mg/dL Calcium 9.2 (8.4-10.2) mg/dL Total Bilirubin 11.50 H (0.1-1.2) mg/dL AST 71 H (5-40) units/L ALT 190 H (7-56) units/L Alkaline Phosphatase 230 H (35-129) units/L Total Protein 7.4 (6.3-8.2) g/dL Albumin 4.1 (3.9-5) g/dL
[2019-04-29 06:35] LABS: Bilirubin,Direct 8.9 mg/dL (0-0.2)
[2019-04-29] MEDS ORDERED: NACL 0.9% 1000 ML 1,000 ML IV SCH (07:00)
[2019-04-29] MEDS ORDERED: WATER FOR IRRIG STERILE IR ONE (07:31)
--- NOTE | 2019-04-29 07:57 | Anesthesia Day of Surgery ---
Anesthesia Day of Surgery - Day of Surgery Patient Examined: Yes Patient H&P Reviewed: Yes Patient is NPO: Yes
--- NOTE | 2019-04-29 07:58 | Anesthesia Consultation ---
Anesthesia Consult and Med Hx Date of service: 04/29/19 - Airway Anesthetic Teeth Evaluation: Poor, Chipped ROM Head & Neck: Adequate Mental/Hyoid Distance: Adequate Mallampati Class: Class III Intubation Access Assessment: Possibly Difficult - Pre-Operative Health Status ASA Pre-Surgery Classification: ASA2, Emergency Proposed Anesthetic Plan: General, MAC - Pulmonary Hx Asthma: No COPD: No Hx Pneumonia: No - Cardiovascular System Hx Hypertension: Yes (BP running high this admission; denies HTN) - Central Nervous System Hx Psychiatric Problems: Yes - Endocrine Hx Renal Disease: No Hx End Stage Renal Disease: No - Other Systems Hx Alcohol Use: No Hx Cancer: No
[2019-04-29] MEDS ORDERED: VERSED ONE (08:25)
[2019-04-29] MEDS ORDERED: ZOFRAN ONE (08:27)
[2019-04-29] MEDS ORDERED: DIPRIVAN 10 MG/ML IV ONE ×3 (08:27→09:02)
[2019-04-29] MEDS ORDERED: PROAIR IH ONE (08:27)
[2019-04-29] MEDS ORDERED: XYLOCAINE MPF 2% ONE (08:27)
[2019-04-29] MEDS ORDERED: SUBLIMAZE ONE (08:32)
--- NOTE | 2019-04-29 09:15 | Post Operative Note ---
Pre-op diagnosis: Biliary Stenosis Post-op diagnosis: same Findings: 1. Ampulla normal without fish mouth/excess mucus 2. PD initially cannulated with 0.035 guidewire but not injected 3. CBD cannulated with Dreamtome/0.035guidewire - Distal 1 cm stenosis at head of pancreas level, with marked dilation (2cm) above stricture - CBD/CHD noted to be tortuous - No stones seen on cholangiogram - Medium sphincterotomy made - Cytology brushing of biliary stricture - 10Fr x 5 cm stent placed in CHD across the stricture with good flow of contrast Procedure: ERCP with sphincterotomy, biliary brushing, and stent of the CBD Anesthesia: MAC Surgeon: LINCOLN WINKLER Estimated blood loss: minimal Pathology: list (1. Biliary brushing sent to Pathology/Cytology) Specimen disposition: to lab Condition: stable Disposition: floor (Recs: 1. Advance to regular diet/check labs in AM. 2. F/U Pathology. 3. No need for abx at present since biliary system draining well. 4. Patient will need EUS/FNA of the pancreas lesion, and surgical consult. Even if benign lesion, it is causing significant biliary obstruction.)
[2019-04-29] MEDS ORDERED: DILAUDID ONE (09:18)
--- NOTE | 2019-04-29 10:05 | Post Anesthesia Evaluation ---
- Post Anesthesia Evaluation Patient Participated: Yes Airway Patent: Yes Stable Respiratory Function: Yes Nausea/Vomiting: No Temp > 96.8F: Yes Pain Manageable: Yes Adequeate Hydration: Yes Anesthesia Complications: No Block Receding Appropriately: Not Applicable Patient on Ventilator: No
--- NOTE | 2019-04-29 10:58 | Operative Report ---
PROCEDURE PERFORMED: Endoscopic retrograde cholangiopancreatography with biliary sphincterotomy, cytology brushing of the bile duct, and biliary stent placement. PREOPERATIVE DIAGNOSIS: Biliary stricture. POSTOPERATIVE DIAGNOSIS: Biliary stricture. ENDOSCOPIST: Nikhil Ibarra MD. INSTRUMENT: InfluxDB video endoscope. MEDICATIONS: MAC anesthesia by [facility]. COMPLICATIONS: No apparent complications. ESTIMATED BLOOD LOSS: Minimal. SPECIMENS: Cytology brushing taken of the common bile duct. IMPLANTS: A 10-Mauritian x 5 cm dual-flange biliary stent was placed into the common hepatic duct. ASSISTANTS: None. CONDITION AT COMPLETION: Stable. TECHNIQUE: The patient was informed of the risks and benefits of the procedure. He signed the informed consent to proceed. He was placed in the prone position. The above sedative medications were given. His vital signs remained stable throughout the procedure. The instrument was advanced from the mouth to the ampulla under direct visualization. The bowel was then insufflated. The ampulla had a normal appearance with no evidence of a fishmouth nor evidence of excess mucus protruding from the ampulla. The pancreatic duct was initially cannulated using a 0.035 guidewire. The sphincterotome was then repositioned and the 0.035 guidewire was cannulated into the common bile duct and into the intrahepatic ducts. A cholangiogram showed a 1 cm stenosis at the level of the pancreatic head with marked dilation of the biliary ductal system above this. There were no gallstones seen on the cholangiogram. A medium sized sphincterotomy was made and then we performed a cytology brushing of the distal common bile duct stenosis. The cytology brush was then removed and a 10-Mauritian x 5 cm stent was placed across the stricture into the common hepatic duct with good flow of contrast at the end of the procedure, which was then terminated. FINDINGS: 1. The ampulla appeared normal in the second portion of the duodenum without a fishmouth appearance and there was no evidence of excess mucus protruding from the duct. 2. The pancreatic duct was initially cannulated with a 0.035 guidewire, but was not injected. 3. The common bile duct was cannulated using a Dreamtome and a 0.035 guidewire. A. There was a distal 1 cm stenosis at the level of the pancreatic head, with marked dilation (2 cm) of the common bile duct and the biliary ductal system above the stricture. B. The common bile duct and the common hepatic duct were noted to be quite tortuous. C. No stones were evident on the patient's cholangiogram. D. A medium sized sphincterotomy was made. E. Cytology brushing was taken of the distal biliary stricture. F. A 10-Mauritian x 5 cm stent was placed in the common hepatic duct, across the biliary stricture, with good flow of contrast. RECOMMENDATIONS: 1. Advance to regular diet and check laboratory studies in the morning. 2. Follow up on pathology. 3. There is no need for antibiotics at present since the biliary system is draining well. 4. The patient will need an endoscopic ultrasound/fine needle aspiration of the pancreas lesion and a surgical consult to the tertiary institution skilled and performing Whipple procedures. 5. Even if the lesion is benign, it is causing significant biliary obstruction and surgical management is likely at this point. [facility]# [id number] LUCI/ERNESTINE
[2019-04-29] MEDS: LOVENOX SUB-Q SCH (11:14)
--- NOTE | 2019-04-29 12:08 | Fluoroscopy Report ---
INTRAOPERATIVE FLUOROSCOPY: ERCP INDICATION: History of biliary obstruction. Guidance for ERCP. TECHNIQUE: Intraoperative spot images were obtained during the procedure. FINDINGS: Limited fluoroscopic imaging demonstrates moderate dilatation of the common hepatic and bile ducts wi th mild intrahepatic biliary ductal dilatation. No distinct suspicious filling defects are identified along the ducts. The gallbladder is partially filled by contrast and contains multiple gallstones. A plastic biliary stent was subsequently placed and appears to be in good position. Please see the pro cedure report for further details. Fluoroscopy Time: 2 minutes. Fluoroscopy Images: 7. Signer Name: Moe Valencia MD Signed: 04/29/2019 12:04 PM Workstation Name: [id number]
--- NOTE | 2019-04-29 13:09 | Progress Note ---
Assessment and Plan Pt feeling well without complaints Abd soft ERCP report noted. distal CBD stricture. sphincerotomy, brushings and successful stent placed T Ronny higher today stable will need f/u in tertiary center repeat T Ronny in am await path report continue present care Selected Entries 04/29/19 11:26 Temperature 97.8 F Pulse Rate 78 Respiratory 20 Rate Blood Pressure 157/102 Laboratory Tests 04/29/19 05:41 Total Bilirubin 12.40 H Objective Vital Signs - 12hr 04/29/19 04/29/19 04/29/19 05:08 07:40 09:13 Temperature 97.9 F 97.5 F L 97.7 F Pulse Rate 88 97 H 75 Respiratory 18 15 16 Rate Blood Pressure 133/84 148/98 147/93 O2 Sat by Pulse 98 96 98 Oximetry 04/29/19 04/29/19 04/29/19 09:28 09:40 11:26 Temperature 97.8 F Pulse Rate 76 81 78 Respiratory 15 11 L 20 Rate Blood Pressure 151/90 148/96 157/102 O2 Sat by Pulse 98 98 96 Oximetry - Labs 04/28/19 04:34 04/28/19 04:34 Diabetes panel 04/29/19 Range/Units 05:41 AST 57 H (5-40) units/L ALT 160 H (7-56) units/L Alkaline Phosphatase 239 H (35-129) units/L Total Protein 7.2 (6.3-8.2) g/dL Albumin 4.0 (3.9-5) g/dL Calcium panel 04/29/19 Range/Units 05:41 Albumin 4.0 (3.9-5) g/dL Adrenal panel 04/29/19 Range/Units 05:41 Total Bilirubin 12.40 H (0.1-1.2) mg/dL AST 57 H (5-40) units/L ALT 160 H (7-56) units/L Alkaline Phosphatase 239 H (35-129) units/L Total Protein 7.2 (6.3-8.2) g/dL Albumin 4.0 (3.9-5) g/dL
[2019-04-29] MEDS: NACL 0.45% 1000 ML 1,000 ML IV SCH (13:53)
--- NOTE | 2019-04-29 16:05 | Progress Note ---
Assessment and Plan Complex pancreatic mass Elevated LFT due to possible cystic pancreatic neoplasm Elevated blood pressure/HTN DVT Px Plan cont IV fluid, IV pain medication as needed GI and surgery was consulted to see the patient - s/p ERCP today with sph incterotomy, biliary brushing, stent of the CBD and Cytology brushing of biliary stricture - F/U Pathology. Patient will need EUS/FNA of the pancreas lesion as outpt Monitor blood pressure, cont IV hydralazine as needed, no need for abx DVT prophylaxis with Lovenox Disposition: Home with outpatient follow-up when LFT trends down and biopsy results available Brief History: Patient is a 38 y/o male who presented to ED from PCP office for evaluation of abd pain with jaundice and hx of gallstones. Patient Reports intermittent epigastric pain that radiates to his back in the past, however pain progressively became worse over the last couple of weeks. Admits to associated occasional N/V with symptoms exacerbated with PO intake. Has lost a few lbs over the last couple of weeks due to current symptoms but has not had a significant loss. CT abdomen and pelvis with contrast and MRI showed marked diffuse intra- and extrahepatic biliary dilatation with complex cystic mass in the head of the pancreas, abdominal ultrasound consistent with cholelithiasis. GI and general surgery has been consulted for further recommendation. Radiological data: Abdominal ultrasound: Cholelithiasis CT abdomen and pelvis with contrast: 1. Marked dilatation of the intra and extrahepatic bile ducts. There are 2 possible causes of obstruction. There is a 1.8 cm complex cystic mass in the pancreatic head. Differential diagnosis includes intraductal papillary mucinous tumor and other cystic pancreatic neoplasms. The other possible cause is choledocholithiasis, although I do not identify a calcified gallstone in the common bile duct. 2. Dilated gallbladder with cholelithiasis. 3. Mildly dilated pancreatic duct is likely related to the cystic lesion in the pancreatic head. MRCP: Marked diffuse intrahepatic and extrahepatic biliary dilatation as outlined above. This appears to be secondary to a high-grade stricture in the distal common bile duct. No convincing choledocholithiasis is identified. Complex cystic mass in the head of the pancreas is also identified. Overall, I favor favor a benign lesion. Considerations include a pseudocyst, cystadenoma or other cystic pancreatic neoplasm. Cholelithiasis. Hospitalist Physical exam: GENERAL: well-developed and well-nourished lying on bed appeared to be in no discomfort. HEENT: Normocephalic. Atraumatic. No conjunctival congestion or icterus. Patient has moist mucous membranes. NECK: Supple. Trachea midline. CHEST/LUNGS: Clear to auscultated bilaterally, breathing nonlabored. No wheezes crackles or rhonchi. HEART/CARDIOVASCULAR: Regular in rate and rhythm. S1 and S2 positive. ABDOMEN: Abdomen is soft, nontender. Patient has normal bowel sounds. SKIN: There is no rash. Warm and dry. NEURO: No focal motor deficit. Follows command. MUSCULOSKELETAL: No joint effusion or tenderness. EXTRIMITY: No edema, no cyanosis or clubbing. PSYCH: Cooperative. Subjective Principal diagnosis: biliary obstruction Interval history: Patient seen and examined. Medical records and medication list reviewed. No acute event overnight noted by the RN. Patient denies any chest pain or difficulty breathing. Patient denies any abdominal pain s/p ERCP today Discussed plan of care at bedside with patient. Objective - Constitutional Vitals: Vital Signs - 12hr 04/29/19 04/29/19 04/29/19 05:08 07:40 09:13 Temperature 97.9 F 97.5 F L 97.7 F Pulse Rate 88 97 H 75 Respiratory 18 15 16 Rate Blood Pressure 133/84 148/98 147/93 O2 Sat by Pulse 98 96 98 Oximetry 04/29/19 04/29/19 04/29/19 09:28 09:40 11:26 Temperature 97.8 F Pulse Rate 76 81 78 Respiratory 15 11 L 20 Rate Blood Pressure 151/90 148/96 157/102 O2 Sat by Pulse 98 98 96 Oximetry - Labs CBC & Chem 7: 04/28/19 04:34 04/28/19 04:34 Labs: Abnormal lab results 04/29/19 Range/Units 05:41 Total Bilirubin 12.40 H (0.1-1.2) mg/dL Direct Bilirubin 8.9 H (0-0.2) mg/dL AST 57 H (5-40) units/L ALT 160 H (7-56) units/L Alkaline Phosphatase 239 H (35-129) units/L
[2019-04-29] MEDS: SODIUM CHLORIDE FLUSH SYRINGE 10 ML IV SCH ×3 (16:41→21:50)
[2019-04-29] MEDS ORDERED: PERCOCET 5/325 PO PRN (18:35)
[2019-04-30] MEDS: NACL 0.45% 1000 ML 1,000 ML IV SCH (01:33)
[2019-04-30 07:13] LABS: Alanine Aminotransferase 134 units/L (7-56); Albumin 3.8 g/dL (3.9-5); BUN/Creatinine Ratio 15; Blood Urea Nitrogen 9 mg/dL (9-20); Calcium 9.2 mg/dL (8.4-10.2); Hemolysis Index 0
[2019-04-30] MEDS: SODIUM CHLORIDE FLUSH SYRINGE 10 ML IV SCH ×2 (09:21→21:12)
--- NOTE | 2019-04-30 09:22 | Gastroenterology Progress Note ---
<JOVANY ZULETA - Last Filed: 04/30/19 09:36> Assessment and Plan 1.obstructive jaundice -afebrile -WBC and H/H WNL -LFTs- T.ragini 11.00, AST 56, ALT 134, alk phos 254 -lipase 101-trending down -acute hepatitis panel negative -tumor markers pending -abd U/S showed cholelithiasis (liver normal) -abd CT showed dilatation of intra and extrahepatic bile ducts, 1.8cm complex cystic mass in pancreatic head, dilated gallbladder with cholelithiasis, and mildly dilated pancreatic duct -MR/MRCP-intra/extrahepatic biliary dilation 2/2 high-grade stricture in the distal CBD (no choledocholithiasis), complex cystic mass in the head of the pancreas, and cholelithiasis -surgery following -etiology- likely from lesion at head of pancreas, possibly cystic neoplasm. No signs of cholangitis -s/p ERCP yesterday that revealed: 1. Ampulla normal without fish mouth/excess mucus 2. PD initially cannulated with 0.035 guidewire but not injected 3. CBD cannulated with Dreamtome/0.035guidewire - Distal 1 cm stenosis at head of pancreas level, with marked dilation (2cm) above stricture - CBD/CHD noted to be tortuous - No stones seen on cholangiogram - Medium sphincterotomy made - Cytology brushing of biliary stricture - 10Fr x 5 cm stent placed in CHD across the stricture with good flow of contrast -cytology results pending -patient needs referral to tertiary center for EUS/FNA of the pancreas lesion and pancreaticobiliary surgeon (will ultimately need surgery even if benign lesion 2/2 causing significant biliary obstruction) -recommend consult for social studies teacher to help possibly facilitate this as inpatient -continue to trend labs and supportive care Subjective Date of service: 04/30/19 Principal diagnosis: biliary obstruction Interval history: Patient resting in bed this am w/o acute distress. Upper abd pain still present but with no change. No N/V. Tolerating diet. Objective - Constitutional Vitals: Temp Pulse Resp BP Pulse Ox 97.5 F L 77 20 145/91 96 04/30/19 05:36 04/30/19 05:36 04/30/19 05:36 04/30/19 05:36 04/30/19 05:36 General appearance: no acute distress - EENT Eyes: scleral icterus - Respiratory Respiratory effort: normal - Cardiovascular Rhythm: regular - Gastrointestinal General gastrointestinal: Present: soft, non-tender, non-distended, normal bowel sounds - Labs CBC & Chem 7: 04/28/19 04:34 04/30/19 05:55 Labs: Laboratory Results - last 24 hr 04/30/19 05:55 Sodium 134 L Potassium 3.4 L Chloride 94.7 L Carbon Dioxide 28 Anion Gap 15 BUN 9 Creatinine 0.6 L Estimated GFR > 60 BUN/Creatinine Ratio 15 Glucose 112 H Calcium 9.2 Total Bilirubin 11.00 H AST 56 H ALT 134 H Alkaline Phosphatase 254 H Total Protein 7.2 Albumin 3.8 L Albumin/Globulin Ratio 1.1 Amylase 630 H <SHERRILL LOCKWOOD - Last Filed: 04/30/19 21:55> Assessment and Plan patient seen and examined, reports symptoms improving discharge planning will be challenging due to patient's lack of insurance and documentation status as he will need EUS/FNA with possible whipple's surgery depending upon results. Regarding IPD management trend LFT, once trending down significantly could be discharged but will require very close outpatient followup Objective - Constitutional Vitals: Temp Pulse Resp BP Pulse Ox 97.9 F 86 18 138/94 97 04/30/19 16:55 04/30/19 16:55 04/30/19 20:00 04/30/19 16:55 04/30/19 16:55 - Labs CBC & Chem 7: 04/28/19 04:34 04/30/19 05:55 Labs: Laboratory Results - last 24 hr 04/30/19 05:55 Sodium 134 L Potassium 3.4 L Chloride 94.7 L Carbon Dioxide 28 Anion Gap 15 BUN 9 Creatinine 0.6 L Estimated GFR > 60 BUN/Creatinine Ratio 15 Glucose 112 H Calcium 9.2 Total Bilirubin 11.00 H AST 56 H ALT 134 H Alkaline Phosphatase 254 H Total Protein 7.2 Albumin 3.8 L Albumin/Globulin Ratio 1.1 Amylase 630 H
--- NOTE | 2019-04-30 13:45 | Progress Note ---
Assessment and Plan Pt feeling well. chavo diet with minimal discomfort Abd soft. T Ronny still very elevated cytology - some atypical cells but no malignancy confirmed pancreatic mass causing CBD obstruction. pt needs major pancreatic surg whether malignancy can be confirmed or not as mass is obstructing biliary system rec transfer to [place] or f/u with [place] as out pt. Direct transfer would be preferred Selected Entries 04/30/19 05:36 Temperature 97.5 F L Pulse Rate 77 Respiratory 20 Rate Blood Pressure 145/91 Laboratory Tests 04/30/19 05:55 Total Bilirubin 11.00 H Objective Vital Signs - 12hr 04/30/19 05:36 Temperature 97.5 F L Pulse Rate 77 Respiratory 20 Rate Blood Pressure 145/91 O2 Sat by Pulse 96 Oximetry - Labs 04/28/19 04:34 04/30/19 05:55 Diabetes panel 04/30/19 Range/Units 05:55 Sodium 134 L (137-145) mmol/L Potassium 3.4 L (3.6-5.0) mmol/L Chloride 94.7 L (98-107) mmol/L Carbon Dioxide 28 (22-30) mmol/L BUN 9 (9-20) mg/dL Creatinine 0.6 L (0.8-1.5) mg/dL Glucose 112 H (75-100) mg/dL Calcium 9.2 (8.4-10.2) mg/dL AST 56 H (5-40) units/L ALT 134 H (7-56) units/L Alkaline Phosphatase 254 H (35-129) units/L Total Protein 7.2 (6.3-8.2) g/dL Albumin 3.8 L (3.9-5) g/dL Calcium panel 04/30/19 Range/Units 05:55 Calcium 9.2 (8.4-10.2) mg/dL Albumin 3.8 L (3.9-5) g/dL Pituitary panel 04/30/19 Range/Units 05:55 Sodium 134 L (137-145) mmol/L Potassium 3.4 L (3.6-5.0) mmol/L Chloride 94.7 L (98-107) mmol/L Carbon Dioxide 28 (22-30) mmol/L BUN 9 (9-20) mg/dL Creatinine 0.6 L (0.8-1.5) mg/dL Glucose 112 H (75-100) mg/dL Calcium 9.2 (8.4-10.2) mg/dL Adrenal panel 04/30/19 Range/Units 05:55 Sodium 134 L (137-145) mmol/L Potassium 3.4 L (3.6-5.0) mmol/L Chloride 94.7 L (98-107) mmol/L Carbon Dioxide 28 (22-30) mmol/L BUN 9 (9-20) mg/dL Creatinine 0.6 L (0.8-1.5) mg/dL Glucose 112 H (75-100) mg/dL Calcium 9.2 (8.4-10.2) mg/dL Total Bilirubin 11.00 H (0.1-1.2) mg/dL AST 56 H (5-40) units/L ALT 134 H (7-56) units/L Alkaline Phosphatase 254 H (35-129) units/L Total Protein 7.2 (6.3-8.2) g/dL Albumin 3.8 L (3.9-5) g/dL
--- NOTE | 2019-04-30 16:53 | Progress Note ---
Assessment and Plan Complex pancreatic head mass Elevated LFT due to possible cystic pancreatic neoplasm Elevated blood pressure/HTN DVT Px Plan cont IV fluid, IV pain medication as needed GI and surgery was consulted to see the patient - s/p ERCP yesterday with sphincterotomy, biliary brushing, stent of the CBD and Cytology brushing of biliary stricture - F/U Pathology. Patient will need EUS/FNA of the pancreas lesion as outpt Monitor blood pressure, cont IV hydralazine as needed, no need for abx DVT prophylaxis with Lovenox Disposition: Home with outpatient follow-up if LFT trends down and biopsy results available. If LFT continue to spike then will need inpt transfer to tertiary center for EUS/FNA of the pancreas lesion and pancreaticobiliary surgeon (will ultimately need surgery even if benign lesion 2/2 causing significant biliary obstruction) Brief History: Patient is a 38 y/o male who presented to ED from PCP office for evaluation of abd pain with jaundice and hx of gallstones. Patient Reports intermittent epigastric pain that radiates to his back in the past, however pain progressively became worse over the last couple of weeks. Admits to associated occasional N/V with symptoms exacerbated with PO intake. Has lost a few lbs over the last couple of weeks due to current symptoms but has not had a significant loss. CT abdomen and pelvis with contrast and MRI showed marked diffuse intra- and extrahepatic biliary dilatation with complex cystic mass in the head of the pancreas, abdominal ultrasound consistent with cholelithiasis. GI and general surgery has been consulted for further recommendation. Radiological data: Abdominal ultrasound: Cholelithiasis CT abdomen and pelvis with contrast: 1. Marked dilatation of the intra and extrahepatic bile ducts. There are 2 po ssible causes of obstruction. There is a 1.8 cm complex cystic mass in the pancreatic head. Differential diagnosis includes intraductal papillary mucinous tumor and other cystic pancreatic neoplasms. The other possible cause is choledocholithiasis, although I do not identify a calcified gallstone in the common bile duct. 2. Dilated gallbladder with cholelithiasis. 3. Mildly dilated pancreatic duct is likely related to the cystic lesion in the pancreatic head. MRCP: Marked diffuse intrahepatic and extrahepatic biliary dilatation as outlined above. This appears to be secondary to a high-grade stricture in the distal common bile duct. No convincing choledocholithiasis is identified. Complex cystic mass in the head of the pancreas is also identified. Overall, I favor favor a benign lesion. Considerations include a pseudocyst, cystadenoma or other cystic pancreatic neoplasm. Cholelithiasis. Hospitalist Physical exam: GENERAL: well-developed and well-nourished lying on bed appeared to be in no discomfort. HEENT: Normocephalic. Atraumatic. No conjunctival congestion or icterus. Patient has moist mucous membranes. NECK: Supple. Trachea midline. CHEST/LUNGS: Clear to auscultated bilaterally, breathing nonlabored. No wheezes crackles or rhonchi. HEART/CARDIOVASCULAR: Regular in rate and rhythm. S1 and S2 positive. ABDOMEN: Abdomen is soft, nontender. Patient has normal bowel sounds. SKIN: There is no rash. Warm and dry. NEURO: No focal motor deficit. Follows command. MUSCULOSKELETAL: No joint effusion or tenderness. EXTRIMITY: No edema, no cyanosis or clubbing. PSYCH: Cooperative. Subjective Date of service: 04/30/19 Principal diagnosis: biliary obstruction Interval history: Patient seen and examined. Medical records and medication list reviewed. No acute event overnight noted by the RN. Patient denies any chest pain or difficulty breathing. Patient c/o mild abdominal pain Discussed plan of care at bedside with patient. Objective - Constitutional Vitals: Vital Signs - 12hr 04/30/19 04/30/19 05:36 12:39 Temperature 97.5 F L 98.4 F Pulse Rate 77 94 H Respiratory 20 16 Rate Blood Pressure 145/91 139/93 O2 Sat by Pulse 96 97 Oximetry - Labs CBC & Chem 7: 04/28/19 04:34 04/30/19 05:55 Labs: Abnormal lab results 04/30/19 Range/Units 05:55 Sodium 134 L (137-145) mmol/L Potassium 3.4 L (3.6-5.0) mmol/L Chloride 94.7 L (98-107) mmol/L Creatinine 0.6 L (0.8-1.5) mg/dL Glucose 112 H (75-100) mg/dL Total Bilirubin 11.00 H (0.1-1.2) mg/dL AST 56 H (5-40) units/L ALT 134 H (7-56) units/L Alkaline Phosphatase 254 H (35-129) units/L Albumin 3.8 L (3.9-5) g/dL Amylase 630 H (27-131) units/L
[2019-04-30] MEDS ORDERED: K-DUR PO ONE (23:00)
[2019-05-01] MEDS: NACL 0.45% 1000 ML 1,000 ML IV SCH (00:14)
[2019-05-01 05:48] LABS: Alanine Aminotransferase 130 units/L (7-56); Albumin 3.8 g/dL (3.9-5); BUN/Creatinine Ratio 18; Blood Urea Nitrogen 11 mg/dL (9-20); Calcium 9.4 mg/dL (8.4-10.2); Hemolysis Index 3
--- NOTE | 2019-05-01 09:39 | Progress Note ---
Assessment and Plan Pt status quo. no complaints Abd soft arrangements being made to attempt to transfer pt to tertiary institution. consider Dr. Remi Brunner at [place] (pancreatic surgeon) stable Selected Entries 05/01/19 04:36 Temperature 98.3 F Pulse Rate 76 Respiratory 18 Rate Blood Pressure 141/98 Laboratory Tests 05/01/19 05:01 Total Bilirubin 9.10 H Objective Vital Signs - 12hr 04/30/19 05/01/19 22:13 04:36 Temperature 98.2 F 98.3 F Pulse Rate 73 76 Respiratory 18 18 Rate Blood Pressure 145/95 141/98 O2 Sat by Pulse 96 98 Oximetry - Labs 04/28/19 04:34 05/01/19 05:01 Diabetes panel 05/01/19 Range/Units 05:01 Sodium 135 L (137-145) mmol/L Potassium 4.1 D (3.6-5.0) mmol/L Chloride 97.8 L (98-107) mmol/L Carbon Dioxide 26 (22-30) mmol/L BUN 11 (9-20) mg/dL Creatinine 0.6 L (0.8-1.5) mg/dL Glucose 119 H (75-100) mg/dL Calcium 9.4 (8.4-10.2) mg/dL AST 60 H (5-40) units/L ALT 130 H (7-56) units/L Alkaline Phosphatase 246 H (35-129) units/L Total Protein 7.1 (6.3-8.2) g/dL Albumin 3.8 L (3.9-5) g/dL Calcium panel 05/01/19 Range/Units 05:01 Calcium 9.4 (8.4-10.2) mg/dL Albumin 3.8 L (3.9-5) g/dL Pituitary panel 05/01/19 Range/Units 05:01 Sodium 135 L (137-145) mmol/L Potassium 4.1 D (3.6-5.0) mmol/L Chloride 97.8 L (98-107) mmol/L Carbon Dioxide 26 (22-30) mmol/L BUN 11 (9-20) mg/dL Creatinine 0.6 L (0.8-1.5) mg/dL Glucose 119 H (75-100) mg/dL Calcium 9.4 (8.4-10.2) mg/dL Adrenal panel 05/01/19 Range/Units 05:01 Sodium 135 L (137-145) mmol/L Potassium 4.1 D (3.6-5.0) mmol/L Chloride 97.8 L (98-107) mmol/L Carbon Dioxide 26 (22-30) mmol/L BUN 11 (9-20) mg/dL Creatinine 0.6 L (0.8-1.5) mg/dL Glucose 119 H (75-100) mg/dL Calcium 9.4 (8.4-10.2) mg/dL Total Bilirubin 9.10 H (0.1-1.2) mg/dL AST 60 H (5-40) units/L ALT 130 H (7-56) units/L Alkaline Phosphatase 246 H (35-129) units/L Total Protein 7.1 (6.3-8.2) g/dL Albumin 3.8 L (3.9-5) g/dL
[2019-05-01] MEDS: SODIUM CHLORIDE FLUSH SYRINGE 10 ML IV SCH (10:19)
--- NOTE | 2019-05-01 10:45 | Gastroenterology Progress Note ---
Assessment and Plan patient seen and examined, reports symptoms improved LFT trending down slower than anticipated, repeat LFT this PM (I placed order) and if significant improvement then no longer requires hospitalization, but will require close outpatient follow up for EUS/FNA Please coordinate with social work for programs to assist the patient, and steffi ora let me know if I can be of assistance in any way - Patient Problems (1) Pancreatic mass Current Visit: Yes Status: Acute (2) Biliary obstruction Current Visit: Yes Status: Acute Subjective Date of service: 05/01/19 Principal diagnosis: biliary obstruction Interval history: Patient reports feeling better, no abd pain Objective - Constitutional Vitals: Temp Pulse Resp BP Pulse Ox 98.3 F 76 18 141/98 98 05/01/19 04:36 05/01/19 04:36 05/01/19 04:36 05/01/19 04:36 05/01/19 04:36 General appearance: no acute distress - Respiratory Respiratory: bilateral: CTA - Cardiovascular Rhythm: regular - Gastrointestinal General gastrointestinal: Present: soft, non-tender - Labs CBC & Chem 7: 04/28/19 04:34 05/01/19 05:01 Labs: Laboratory Results - last 24 hr 05/01/19 05:01 Sodium 135 L Potassium 4.1 D Chloride 97.8 L Carbon Dioxide 26 Anion Gap 15 BUN 11 Creatinine 0.6 L Estimated GFR > 60 BUN/Creatinine Ratio 18 Glucose 119 H Calcium 9.4 Total Bilirubin 9.10 H AST 60 H ALT 130 H Alkaline Phosphatase 246 H Total Protein 7.1 Albumin 3.8 L Albumin/Globulin Ratio 1.2
[2019-05-01 12:02] LABS: Albumin 3.7 g/dL (3.9-5); Bilirubin,Direct 6.9 mg/dL (0-0.2)
--- NOTE | 2019-05-01 14:02 | Discharge Summary ---
Providers - Providers Date of Admission: 04/27/19 01:24 Date of discharge: 05/01/19 Attending physician: SUJEY HDZ 04/27/19 00:20 Consult to Physician [CONS] Stat Comment: ADDICTION SOCIAL WORKER/SUKI Iyer spoke with Dr. Alcaraz @ 0018 Consulting Provider: HAN ALCARAZ Physician Instructions: Reason For Exam: Obstructive Gall Stones 04/27/19 00:28 Consult to Physician [CONS] Stat Comment: Consulting Provider: CALISTA DIEHL Physician Instructions: Reason For Exam: Obstructive Gall Stones [facility] Condition: St[facility] Hospital course: Patient is a 38 y/o male who presented to ED from PCP office for evaluation of abd pain with jaundice and hx of gallstones. Patient Reports intermittent epigastric pain that radiates to his back in the past, however pain progressively became worse over the last couple of weeks. Admits to associated occasional N/V with symptoms exacerbated with PO intake. Has lost a few lbs over the last couple of weeks due to current symptoms but has not had a significant loss. CT abdomen and pelvis with contrast and MRI showed marked diffuse intra- and extrahepatic biliary dilatation with complex cystic mass in the head of the pancreas, abdominal ultrasound consistent with cholelithiasis. GI and general surgery has been consulted for further recommendation. - Patient admitted to [facility], placed on IV fluid, IV pain medication as needed, monitored LFT - GI and surgery was consulted to see the patient - s/p ERCP yesterday with sphincterotomy, biliary brushing, stent of the CBD and Cytology brushing of biliary stricture - F/U Pathology as outpatient. Patient will need EUS/FNA of the pancreas lesion as outpt - patient recommended to follow-up with Dr. Lockwood ([place] [facility]) and Dr. Remi Brunner at [place] (pancreatic surgeon) - Monitored blood pressure, no need for abx - DVT prophylaxis with Lovenox Radiological data: Abdominal ultrasound: Cholelithiasis CT abdomen and pelvis with contrast: 1. Marked dilatation of the intra and extrahepatic bile ducts. There are 2 possible causes of obstruction. There is a 1.8 cm complex cystic mass in the pancreatic head. Differential diagnosis includes intraductal papillary mucinous tumor and other cystic pancreatic neoplasms. The other possible cause is jacob docholithiasis, although I do not identify a calcified gallstone in the common bile duct. 2. Dilated gallbladder with cholelithiasis. 3. Mildly dilated pancreatic duct is likely related to the cystic lesion in the pancreatic head. MRCP: Marked diffuse intrahepatic and extrahepatic biliary dilatation as outlined above. This appears to be secondary to a high-grade stricture in the distal common bile duct. No convincing choledocholithiasis is identified. Complex cystic mass in the head of the pancreas is also identified. Overall, I favor favor a benign lesion. Considerations include a pseudocyst, cystadenoma or other cystic pancreatic neoplasm. Cholelithiasis. 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 HEENT: Normocephalic. Atraumatic. No conjunctival congestion or icterus. Patient has moist mucous membranes. NECK: Supple. Trachea midline. CHEST/LUNGS: Clear to auscultated bilaterally, breathing nonlabored. No wheezes crackles or rhonchi. HEART/CARDIOVASCULAR: Regular in rate and rhythm. S1 and S2 positive. ABDOMEN: Abdomen is soft, nontender. Patient has normal bowel sounds. SKIN: There is no rash. Warm and dry. NEURO: No focal motor deficit. Follows command. MUSCULOSKELETAL: No joint effusion or tenderness. EXTRIMITY: No edema, no cyanosis or clubbing. PSYCH: Cooperative. Disposition: - TO HOME OR SELFCARE Time spent for discharge: 34 minutes Core Measure Documentation - Palliative Care Palliative Care/ Comfort Measures: Not Applicable - Core Measures Any of the following diagnoses?: none Exam - Constitutional Vitals: Temp Pulse Resp BP Pulse Ox 98.1 F 78 14 132/84 96 05/01/19 11:51 05/01/19 11:51 05/01/19 11:51 05/01/19 11:51 05/01/19 11:51 Plan Activity: advance as tolerated Weight Bearing Status: Weight Bear as Tolerated Diet: low fat Additional Instructions: Follow-up with Dr. Lockwood for pending biopsy result and repeat LFT by Tuesday. Follow-up with Dr. Remi Brunner at [place] (pancreatic surgeon) in 1 week Follow up with: TRAV DUENASOLMSTEAD MD [place] [Primary Care Provider] - 7 Days SHERRILL LOCKWOOD MD [Staff Physician] - 7 Days Prescriptions: oxyCODONE /ACETAMINOPHEN [Percocet 5/325 mg] 1 tab PO Q6H PRN #14 tablet PRN Reason: Pain, Moderate (4-6)
[2019-05-01 15:48] LABS: Albumin 3.8 g/dL (3.9-5); Bilirubin,Direct 6.7 mg/dL (0-0.2)
[2019-05-01 18:53] VITALS: BP 136/96
[2019-05-01] MEDS ORDERED: LOVENOX SUB-Q SCH (22:00)
== END 2019-05-01 19:00 | disposition home or self-care (01) | DRG 438 ==
LOC: ED 17:35 → 3A 04-27 01:24
PROVIDERS: ADMIT Internal Medicine; ATTEND Internal Medicine
PROC: 0FB98ZX Excision of Common Bile Duct, Via Natural or Artificial Opening Endoscopic, Diagnostic (ICD-10-PCS; principal; 2019-04-29)
PROC: 0F798DZ Dilation of Common Bile Duct with Intraluminal Device, Via Natural or Artificial Opening Endoscopic (ICD-10-PCS; 2019-04-29)
PROC: BF111ZZ Fluoroscopy of Biliary and Pancreatic Ducts using Low Osmolar Contrast (ICD-10-PCS; 2019-04-29)
DX: K86.89 Other specified diseases of pancreas (principal); K83.1 Obstruction of bile duct; K80.21 Calculus of gallbladder without cholecystitis with obstruction; K83.8 Other specified diseases of biliary tract; R79.89 Other specified abnormal findings of blood chemistry; K82.8 Other specified diseases of gallbladder; I10 Essential (primary) hypertension; Z82.49 Family history of ischemic heart disease and other diseases of the circulatory system; Z83.3 Family history of diabetes mellitus; Z90.49 Acquired absence of other specified parts of digestive tract
CPT/HCPCS: 36415; 74177; 74183; 74328; 76705; 80048; 80053; 80074; 80076; 82150; 83690; 85025; 85610; 86301; 88104; G0378; A9577; C1726; C2625; J1170; J1200; J1650; J2250; J2270; J2405; J2704; J3010; J7030; Q9967